=== PATIENT | female | born 1960 | race Caucasian/White ===

== ENCOUNTER → 2018-01-26 | Outpatient (CLI) | payer OTHER ==
[2018-01-27 19:05] LABS: AMPHETAMINE, URINE Negative ng/mL (Cutoff=1000); BARBITURATE, URINE Negative ng/mL (Cutoff=200); CANNABINOID, URINE Negative ng/mL (Cutoff=20); CREATININE, UR 102.1 mg/dL (20.0-300.0); PH URINE 5.9 (4.5-8.9)
== END | disposition home or self-care (01) ==
LOC: LAB 06:53
PROVIDERS: Anesthesiology
DX: M54.5 Low back pain (principal); M54.16 Radiculopathy, lumbar region; M53.86 Other specified dorsopathies, lumbar region

== ENCOUNTER → 2018-09-06 | Outpatient (CLI) | payer OTHER ==
[2018-09-06 16:31] LABS: URINE AMPHETAMINES < 1000 (1000ng/ml); URINE BARBITURATES < 200 (200ng/ml); URINE BENZODIAZEPINES < 200 (200ng/ml); URINE CANNABINOIDS (THC) < 50 (50ng/ml); URINE COCAINE < 300 (300ng/ml); URINE METHADONE < 300 (300ng/ml); URINE OPIATES < 300 (300ng/ml); URINE PHENCYCLIDINE < 25 (25ng/ml)
[2018-09-07 18:02] LABS: BARBITURATE, URINE Negative ng/mL (Cutoff=200); CANNABINOID, URINE Negative ng/mL (Cutoff=20); CREATININE, UR 31.4 mg/dL (20.0-300.0); PH URINE 6.7 (4.5-8.9)
== END | disposition home or self-care (01) ==
LOC: LAB 16:01
PROVIDERS: Pain Medicine Pain Medicine
DX: M54.16 Radiculopathy, lumbar region (principal); M53.86 Other specified dorsopathies, lumbar region; M25.552 Pain in left hip; M54.5 Low back pain

== ENCOUNTER → 2019-01-29 | Outpatient (CLI) | payer OTHER ==
[2019-02-01 11:06] LABS: AMPHETAMINE, URINE Negative ng/mL (Cutoff=1000); TRAMADOL Positive (Cutoff=200)
[2019-02-01 11:16] LABS: BARBITURATE Negative; CANNABINOIDS Negative; COCAINE (METABOLITE) Negative; PHENCYCLIDINE Negative
[2019-02-01 11:17] LABS: METHADONE Negative; PROPOXYPHENE Negative
[2019-02-04 08:01] LABS: OPIATES Negative ng/mL (Cutoff=300); OXYCODONE/OXYMORPHONE Negative ng/mL (Cutoff=300)
[2019-02-04 08:02] LABS: MEPERIDINE Negative ng/mL (Cutoff=200)
== END | disposition home or self-care (01) ==
LOC: LAB 16:11
PROVIDERS: Physical Medicine & Rehabilitation
DX: M25.552 Pain in left hip (principal); M54.5 Low back pain; M54.16 Radiculopathy, lumbar region; M53.86 Other specified dorsopathies, lumbar region; Z79.899 Other long term (current) drug therapy; Z79.891 Long term (current) use of opiate analgesic

== ENCOUNTER → 2021-02-02 | Outpatient (CLI) | payer OTHER ==
[2021-02-02 19:55] LABS: BASO % 0.2 % (0.0-1.0); EOS % 0.2 % (1.0-4.0); HEMATOCRIT 41.3 % (37.0-47.0); LYMPH # 2.6 10*3/uL (1.3-4.4); LYMPH % 20.2 % (27.0-41.0); MEAN CELL VOLUME 90.2 fl (81.0-99.0); MEAN CORPUSCULAR HGB 29.5 pg (27.0-31.0); MEAN CORPUSCULAR HGB CONC 32.7 g/dl (33.0-37.0); MEAN PLATELET VOLUME 11.4 fl (9.6-12.3); MONO # 0.8 10*3/uL (0.1-1.0); MONO % 6.3 % (3.0-9.0); NEUT # 9.3 10*3/uL (2.3-7.9); NEUT % 72.6 % (47.0-73.0); PLATELET COUNT AUTOMATED 305 10*3/uL (130-400); RED BLOOD COUNT 4.58 10*6/uL (4.10-5.10); RED CELL DISTRI WIDTH 13.2 % (0-14.5); WHITE BLOOD COUNT 12.8 10*3/uL (4.8-10.8)
[2021-02-02 20:09] LABS: ALBUMIN 3.6 gm/dl (3.1-4.5); ALKALINE PHOSPHATASE 101 U/L (45-117); BUN 15 mg/dl (7-24); CHLORIDE 102 mmol/L (98-107); CHOLESTEROL 203 mg/dL (<200); CREATININE 0.83 mg/dL (0.55-1.02); HDL CHOLESTEROL 34 mg/dl (40-60); LDL CHOLESTEROL 117 mg/dL (9-159); SGOT/AST 31 IU/L (3-35); SGPT/ALT 58 U/L (12-78); SODIUM 138 mmol/L (136-145); TOTAL PROTEIN 7.6 gm/dL (6.4-8.2); TRIGLYCERIDES 261 mg/dl (<150); VLDL CHOLESTEROL 52 mg/dL (6-40)
== END | disposition home or self-care (01) ==
LOC: LAB 18:56
PROVIDERS: ATTEND Nurse Practitioner Primary Care
DX: I10 Essential (primary) hypertension (principal); E78.00 Pure hypercholesterolemia, unspecified; E55.9 Vitamin D deficiency, unspecified